=== PATIENT | female | born 1945 | race Caucasian/White ===

== ENCOUNTER → 2020-09-19 14:14 | Outpatient (BNVA) | payer MEDICARE, SELFPAY | PROVIDERS: PCP Family Medicine; Visit Provider Internal Medicine | DX: I25.10 Atherosclerotic heart disease of native coronary artery without angina pectoris (principal); I10 Essential (primary) hypertension; E78.5 Hyperlipidemia, unspecified; I25.2 Old myocardial infarction; Z79.899 Other long term (current) drug therapy; F17.210 Nicotine dependence, cigarettes, uncomplicated; Z71.6 Tobacco abuse counseling; Z95.5 Presence of coronary angioplasty implant and graft | CPT/HCPCS: 93005; 99212 ==

== ENCOUNTER 2021-03-06 10:21 | Day surgery (SDC) | payer MEDICARE, SELFPAY ==
--- NOTE | 2021-03-05 09:25 | HO.ANESPROP2 ---
Documented by User: Dana Pompa 03/05/21 09:26 HPI - Anesthesia Eval Consult details Narrative: 75yo F for Upper Endoscopy and Colonoscopy Stable at yearly cardiac visit 08/2020 [facility] Active Problems Active Problems: All Active Problems (Updated 01/09/21 @ 14:32 by Lorraine Early) Smoking (Acute) Other and unspecified hyperlipidemia (Acute) Essential hypertension (Acute) Atherosclerotic cardiovascular disease (Acute) Past Medical History Medical History Atherosclerotic cardiovascular disease Depression Elevated cholesterol Essential hypertension History of non-ST elevation myocardial infarction (NSTEMI) Hx of thyroid cancer On beta altagracia at home Other and unspecified hyperlipidemia Smoking Family History Family History Father No problems noted. Mother No problems noted. Surgical History Surgical History History of cardiac catheterization (~07/2016) History of carpal tunnel surgery of left wrist History of section History of esophagogastroduodenoscopy (EGD) History of thyroidectomy Hx of arthroscopy of right knee Hx of colonoscopy Social History Social History (Updated 03/06/21 @ 12:35 by Lara Acevedo) Patient Tobacco Use Status: Current someday Tobacco user Cigarettes Per Day: 2 Smoked in Last 30 Days: Yes Use of substances other than those prescribed or required for medical reasons: No Are you DNR?: No Advance Directives: No Advance Directives Information Provided: No Meds Allergies Allergy/AdvReac Type Severity Reaction Status Date / Time No Known Allergies Allergy Verified 01/09/21 14:23 [No Known Allergies*] Home Medications Medication Instructions Recorded Confirmed Last Taken Type amlodipine 5 mg tablet 5 mg PO BEDTIME 09/19/20 03/01/21 Unknown History aspirin 81 mg tablet,delayed 81 mg PO DAILY 09/19/20 03/01/21 Unknown History release citalopram 10 mg tablet 10 mg PO DAILY 09/19/20 03/01/21 Unknown History fluticasone propionate 50 INTRANASAL 09/19/20 09/19/20 Unknown History mcg/actuation nasal spray,suspension latanoprost 0.005 % eye drops 1 drp OPHTHALMIC (EYE) BEDTIME 09/19/20 03/01/21 Unknown History levothyroxine 100 mcg tablet 100 mcg PO DAILY 09/19/20 03/01/21 Unknown History lisinopril 40 mg tablet 40 mg PO BEDTIME 09/19/20 03/01/21 Unknown History magnesium 250 mg tablet 250 mg PO DAILY 09/19/20 03/01/21 Unknown History metoprolol tartrate 25 mg tablet 25 mg PO BID 09/19/20 03/01/21 Unknown History omeprazole 20 mg capsule,delayed 20 mg PO DAILY 09/19/20 03/01/21 Unknown History release Exam Exam Date and Time: March 05, [id number] Narrative Narrative: EKG 08/2020 sinus rhythm at 70/Min, no significant ST-T changes, no ischemia or infarction patterns, normal MT/QTc. Assessment and Plan Assessment Anesthesia Assessment: Chart Reviewed Documented by User: Lara Acevedo 03/06/21 12:36 [facility] Past Medical History Medical History Atherosclerotic cardiovascular disease Depression Elevated cholesterol Essential hypertension History of non-ST elevation myocardial infarction (NSTEMI) Hx of thyroid cancer On beta altagracia at home Other and unspecified hyperlipidemia Smoking Family History Family History Father No problems noted. Mother No problems noted. Family history of problems with anesthesia: No Surgical History Surgical History History of cardiac catheterization (~07/2016) History of carpal tunnel surgery of left wrist History of section History of esophagogastroduodenoscopy (EGD) History of thyroidectomy Hx of arthroscopy of right knee Hx of colonoscopy History of Problems with Anesthesia: No Social History Social History (Updated 03/06/21 @ 12:35 by Lara Acevedo) Patient Tobacco Use Status: Current someday Tobacco user Cigarettes Per Day: 2 Smoked in Last 30 Days: Yes Use of substances other than those prescribed or required for medical reasons: No Are you DNR?: No Advance Directives: No Advance Directives Information Provided: No Meds Allergies Allergy/AdvReac Type Severity Reaction Status Date / Time No Known Allergies Allergy Verified 01/09/21 14:23 [No Known Allergies*] Home Medications Medication Instructions Recorded Confirmed Last Taken Type amlodipine 5 mg tablet 5 mg PO BEDTIME 09/19/20 03/01/21 Unknown History aspirin 81 mg tablet,delayed 81 mg PO DAILY 09/19/20 03/01/21 Unknown History release citalopram 10 mg tablet 10 mg PO DAILY 09/19/20 03/01/21 Unknown History fluticasone propionate 50 INTRANASAL 09/19/20 09/19/20 Unknown History mcg/actuation nasal spray,suspension latanoprost 0.005 % eye drops 1 drp OPHTHALMIC (EYE) BEDTIME 09/19/20 03/01/21 Unknown History levothyroxine 100 mcg tablet 100 mcg PO DAILY 09/19/20 03/01/21 Unknown History lisinopril 40 mg tablet 40 mg PO BEDTIME 09/19/20 03/01/21 Unknown History magnesium 250 mg tablet 250 mg PO DAILY 09/19/20 03/01/21 Unknown History metoprolol tartrate 25 mg tablet 25 mg PO BID 09/19/20 03/01/21 Unknown History omeprazole 20 mg capsule,delayed 20 mg PO DAILY 09/19/20 03/01/21 Unknown History release Exam Height,Weight and Vital Signs: Vital Signs Temp Pulse Resp BP Pulse Ox 98.0 F 67 18 123/68 97 03/06/21 10:50 03/06/21 10:50 03/06/21 10:50 03/06/21 10:50 03/06/21 10:50 Airway Mallampati Class: III (Small mouth) TM Dist: >3cm Neck ROM: Full Loose/Missing/Broken Teeth: Yes (Some broken) Heart: RRR Lungs: CTAB Assessment and Plan Assessment Anesthesia Assessment: Anesthesia Plan Discussed and Chart Reviewed Final Anesthetic Review NPO: Yes ASA Class: III Final Preanesthetic Review: No Changes in Pt Med Stat, Meds/Allgs Chart Reviewed, Consent Obtained/Reviewed and Anes Risks/Benef Reviewed Patient Risk: Intermediate Procedure Risk: Low Assessment/Block/Sedation in SS: Assess/Block/Sedation-SS Anesthetic Plan Anesthetic Plan: MAC: Disposition: Standard PACU
[2021-03-06 10:50] VITALS: BP 123/68; PULSE 67; RESP 18; TEMP 36.7; O2SAT 97; BMI 26.8
[2021-03-06] MEDS: Lactated Ringers 1,000 ML 100 ML IVCONT (10:58)
--- NOTE | 2021-03-06 11:37 | MHC.SHP ---
Pre-Procedural Eval Section B Chief Complaint: reflux disease, screening Details of Present Illness: see H&P no changes Relevant Family History (Specify if Yes): No Relevant Social History: None Present Medications: see Short Stay Collaborative assessment Medical History: No relevant PMH (see h&p) History of Previous Operations: No relevant previous surgery Allergies: Allergies Allergy/AdvReac Type Severity Reaction Status Date / Time No Known Allergies Allergy Verified 01/09/21 14:23 [No Known Allergies*] Review of Systems Sugical H&P ROS: Negative: Constitution, Cardiovascular, Respiratory, Neurological, Psychiatric, Hem-Onc, Allergic/Immunologic, Gastrointestinal, Genitourinary, Musculoskeletal, Integumentary, Endocrine and Eyes/Ears/Nose/Throat Exam Surgical H&P Exam: Normal: HEENT, Normal: Heart, Normal: Lungs, Normal: Extremities, Normal: Abdomen, Normal: Skin and Normal: Neurological Plan Diagnosis/Plan: Unchanged I have reviewed the history and physical and performed a pertinent physical examination on my patient. No changes have occurred unless specified.
--- NOTE | 2021-03-06 12:19 | PM.OP ---
Brief Operative Note Date of Service: 03/06/21 Pre-op diagnosis: gerd screening Post-op diagnosis: same Procedure: egd/colon Surgeon: Rafael Prieto Anesthesia: MAC Was an [employer] Rug [employer] used for this Procedure?: No Estimated blood loss (mL): 2 Pathology: other (bxs egj, natrum, gastric polyps) Condition: stable
[2021-03-06 12:21] VITALS: BP 103/64; PULSE 68; RESP 17; TEMP 36.3; O2SAT 100
[2021-03-06 12:36] VITALS: BP 126/75; PULSE 70; RESP 17; TEMP 36.3; O2SAT 98
--- NOTE | 2021-03-09 10:56 | OP_ITS ---
SURGEON: Rafael Prieto MD INDICATIONS: Gastroesophageal reflux disease and colon cancer screening. PREOPERATIVE DIAGNOSIS: POSTOPERATIVE DIAGNOSIS: PROCEDURE PERFORMED: 1. Upper endoscopy with biopsy. 2. Colonoscopy to the terminal ileum. ESTIMATED BLOOD LOSS: COMPLICATIONS: ANESTHESIA: ASSISTANTS: SPECIMENS: MEDICATIONS: Monitored anesthesia care. DESCRIPTION OF PROCEDURE: History and physical performed. The risks and benefits of the procedure were explained to the patient. Informed consent was obtained. The patient was placed in the left lateral decubitus position. The Olympus video gastroscope was introduced into the esophagus, stomach, and duodenum. Examination was performed and the scope was removed. She was repositioned for colonoscopy. A digital rectal exam was performed and was found to be normal. The Olympus pediatric video colonoscope was introduced into the rectum and advanced to the cecum without difficulty. The cecum was identified by transillumination, palpation, and identification of ileocecal valve. Examination was performed and the scope was removed. She tolerated both procedures well and was taken to recovery area in stable condition. FINDINGS: UPPER ENDOSCOPY: Esophagus: The esophagus showed a slightly irregular EG junction. This was biopsied. There was no esophagitis. Stomach: The stomach showed multiple benign-appearing less than 10 mm gastric polyps, mainly involving the fundus and body. Biopsies were obtained from 2 polyps and the antrum. The antrum appeared normal. Duodenum: The bulb and second portion were normal. Biopsies were obtained from the antrum as well. COLONOSCOPY: The terminal ileum was normal. The visualized colonic mucosa was within normal limits without evidence of masses or ulcers. No polyps were identified. There was some formed stool in the descending colon limiting the sensitivity examination for detection of small polyps. Overall, the exam was considered adequate. Retroflexed examination showed some small internal hemorrhoids. IMPRESSION: 1. Gastroesophageal reflux disease. 2. Gastric polyps. 3. Normal colonoscopy. RECOMMENDATIONS: 1. Follow up the biopsy results. 2. Repeat colonoscopy is recommended in 10 years for average risk individuals. This is optional based on the patient's age. MD CODIE Avila/YUSUF / [id number] MTDD
== END 2021-03-06 12:58 | disposition home or self-care (01) ==
PROVIDERS: PCP Family Medicine; Visit Provider Internal Medicine Gastroenterology
PROC: (CPT 43239; principal; 2021-03-06 11:50)
DX: Z12.11 Encounter for screening for malignant neoplasm of colon (principal); K21.9 Gastro-esophageal reflux disease without esophagitis; I10 Essential (primary) hypertension; K31.7 Polyp of stomach and duodenum; Z85.850 Personal history of malignant neoplasm of thyroid; Z79.82 Long term (current) use of aspirin; Z79.899 Other long term (current) drug therapy
CPT/HCPCS: 43239; G0121; 88305; 88342

== ENCOUNTER → 2021-10-08 11:07 | Outpatient (BNVA) | payer MEDICARE, SELFPAY | PROVIDERS: PCP Family Medicine; Visit Provider Internal Medicine | DX: I25.10 Atherosclerotic heart disease of native coronary artery without angina pectoris (principal); I10 Essential (primary) hypertension; E78.5 Hyperlipidemia, unspecified; F17.200 Nicotine dependence, unspecified, uncomplicated; Z79.82 Long term (current) use of aspirin; Z79.899 Other long term (current) drug therapy | CPT/HCPCS: 93005; 99212 ==

== ENCOUNTER → 2022-07-25 08:17 | Outpatient (BNVA) | payer MEDICARE, SELFPAY | PROVIDERS: PCP Family Medicine; Visit Provider Psychiatry & Neurology Neurology | DX: R26.9 Unspecified abnormalities of gait and mobility (principal); R20.0 Anesthesia of skin; R20.2 Paresthesia of skin; R25.9 Unspecified abnormal involuntary movements | CPT/HCPCS: 99202 ==

== ENCOUNTER 2022-08-19 08:58 | Outpatient (REF) | payer MEDICARE, SELFPAY ==
--- NOTE | ~2022-08-19 | MR_ITS ---
EXAMINATION: MR CERVICAL SPINE WITHOUT CONTRAST CLINICAL INFORMATION: Gait and mobility abnormality. Bilateral upper extremity radicular symptoms reported. COMPARISON: X-ray cervical spine from 03/31/2014. TECHNIQUE: Multiplanar, multisequential imaging of the cervical spine was performed without contrast. FINDINGS: VERTEBRAL BODIES AND PARASPINAL SOFT TISSUES: Leftward curvature of the cervical spine again evident. The marrow signal is normal. There are no compression fractures. Mild anterolisthesis noted at the C4-C5 level. There are minimal anterior subluxations at the C5-C6, C6-C7, and C7-T1 levels. At the T1-T2 level, there is a mild anterolisthesis and broad-based central disc protrusion mildly impressing upon the ventral cord and thecal sac with thickening of the ligamentum flavum and oqmwhxsn-ct-wjocxw facet arthropathy, worse on the right side. Secondary mild central canal stenosis and ashj-ka-guhqfrsd foraminal narrowing. The paraspinal soft tissues appear normal. The vertebral artery flow voids are maintained. The imaged lung apices are grossly clear. There is a mild anterior subluxation with radfdfgr-tu-jncyca facet arthropathy also evident on sagittal imaging at the T2-T3 level with moderate foraminal encroachment. CERVICOMEDULLARY JUNCTION AND VISUALIZED POSTERIOR FOSSA: The craniovertebral junction and imaged portions of the brain demonstrate no acute abnormality. Mild small vessel ischemic changes noted in the brent. No cord signal abnormality or syrinx is seen. SPINAL LEVELS: C2-C3: Very small central disc protrusion. No central canal stenosis or foraminal narrowing. Mild left-sided facet arthropathy. C3-C4: Minimal disc bulge and moderate facet arthrosis, worse on the left side. No central canal stenosis. Znfn-ki-sjjykdut left foraminal narrowing. C4-C5: Mild anterolisthesis and disc bulge with thickening of the ligamentum flavum in conjunction with exuberant right-sided facet arthropathy. Findings result in moderate central canal stenosis and severe right foraminal narrowing. C5-C6: Minimal anterolisthesis and mild disc bulge with thickening of the ligamentum flavum. No central canal stenosis. Significant bilateral facet arthropathy with iyzd-yu-tkavdhnj foraminal narrowing. C6-C7: Mild anterolisthesis and significant right-sided facet arthropathy. No central canal stenosis. Moderate right foraminal narrowing. C7-T1: Moderate facet degeneration, worse on the right side, with mild right foraminal encroachment. No central canal stenosis or focal disc protrusion. MR/MR cervical spine wo con IMPRESSION: 1. Multilevel cervical spondylosis and leftward cervical spinal curvature. Moderate central canal stenosis at the C4-C5 level with significant right-sided facet arthropathy, a mild anterolisthesis, and severe right foraminal narrowing. 2. Mild anterior subluxation and broad-based central disc protrusion at the T1-T2 level with mild central canal stenosis and qjfeeafq-zo-zryuho facet arthropathy. 3. Significant facet arthropathy at the C5-C6 level with ikpg-db-efmbstij foraminal encroachment. Moderate right foraminal narrowing at the C6-C7 level with severe facet arthrosis.
== END 2022-08-19 08:59 | disposition home or self-care (01) ==
LOC: HO.MRI 08:58
PROVIDERS: PCP Family Medicine; Visit Provider Psychiatry & Neurology Neurology
DX: R26.9 Unspecified abnormalities of gait and mobility (principal)
CPT/HCPCS: 72141

== ENCOUNTER 2022-08-28 14:04 | Outpatient (REF) | payer MEDICARE, SELFPAY ==
--- NOTE | 2022-08-28 08:45 | EMG_ITS ---
Please see scanned EMG / Nerve Conduction Report. MTDD
== END 2022-08-28 14:05 | disposition home or self-care (01) ==
LOC: HO.NEURO 14:04
PROVIDERS: Visit Provider Psychiatry & Neurology Neurology
DX: R20.0 Anesthesia of skin (principal); R20.2 Paresthesia of skin
CPT/HCPCS: 95885; 95910

== ENCOUNTER → 2022-09-05 07:50 | Outpatient (BNVA) | payer MEDICARE, SELFPAY | PROVIDERS: PCP Family Medicine; Visit Provider Psychiatry & Neurology Neurology | DX: R26.9 Unspecified abnormalities of gait and mobility (principal); R25.9 Unspecified abnormal involuntary movements; G56.01 Carpal tunnel syndrome, right upper limb | CPT/HCPCS: 99212 ==

== ENCOUNTER → 2022-10-09 09:52 | Outpatient (BNVA) | payer MEDICARE, SELFPAY | PROVIDERS: PCP Family Medicine; Referring Provider Family Medicine; Visit Provider Internal Medicine | DX: I25.10 Atherosclerotic heart disease of native coronary artery without angina pectoris (principal); I10 Essential (primary) hypertension; E78.5 Hyperlipidemia, unspecified; I65.23 Occlusion and stenosis of bilateral carotid arteries; F17.210 Nicotine dependence, cigarettes, uncomplicated; Z79.82 Long term (current) use of aspirin; Z79.899 Other long term (current) drug therapy | CPT/HCPCS: 93005; 99212 ==

== ENCOUNTER 2022-10-31 12:56 | Outpatient (REF) | payer MEDICARE, SELFPAY ==
--- NOTE | ~2022-10-31 | US_ITS ---
EXAMINATION: US EXTRACRANIAL CAROTID DUPLEX, BILATERAL CLINICAL INFORMATION: Stenosis of bilateral carotid artery COMPARISON: Carotid Doppler 09/28/2018 TECHNIQUE: Real-time ultrasound and Doppler techniques (integrating B-mode 2-D vascular images, Doppler spectral analysis and color-flow Doppler imaging) were utilized to interrogate the extracranial carotid arteries, the vertebral arteries and proximal subclavian arteries bilaterally. The degree of stenosis is determined by criteria similar to NASCET. FINDINGS: Right Side: 1. There is mild atherosclerotic plaque seen in the bifurcation/proximal ICA region. 2. The common carotid artery PSV proximally is 84 cm/s and distally 91 cm/s. 3. The proximal internal carotid artery velocities are 80 cm/s systolic and 18 cm/s diastolic. 4. The proximal external carotid artery PSV is 147 cm/s. 5. The vertebral artery shows antegrade flow. 6. The subclavian artery waveforms are biphasic. Left Side: 1. There is mild atherosclerotic plaque seen in the bifurcation/proximal ICA region. 2. The common carotid artery PSV proximally is 104 cm/s and distally 71 cm/s. 3. The proximal internal carotid artery velocities are 141 cm/s systolic and 34 cm/s diastolic. 4. The proximal external carotid artery PSV is 83 cm/s. 5. The vertebral artery shows antegrade flow. 6. The subclavian artery waveforms are biphasic. US/US carotid duplex BI IMPRESSION: 1. RIGHT: Minimal, non-hemodynamically significant stenosis of the proximal right internal carotid artery corresponding to a 0-49% stenosis by velocity criteria. 2. LEFT: Moderate, hemodynamically significant stenosis of the proximal left internal carotid artery corresponding to a 50-79% stenosis by velocity criteria. 3. There is progression in the category severity of disease on the left when compared to the previous study dated 09/28/2018.
== END 2022-10-31 12:57 | disposition home or self-care (01) ==
LOC: HO.US 12:56
PROVIDERS: Visit Provider Internal Medicine
DX: I65.23 Occlusion and stenosis of bilateral carotid arteries (principal)
CPT/HCPCS: 93880

== ENCOUNTER → 2022-11-27 09:49 | Outpatient (BNVA) | payer MEDICARE, SELFPAY | PROVIDERS: PCP Family Medicine; Visit Provider Orthopaedic Surgery | DX: M65.332 Trigger finger, left middle finger (principal); G56.01 Carpal tunnel syndrome, right upper limb; I25.10 Atherosclerotic heart disease of native coronary artery without angina pectoris; I65.23 Occlusion and stenosis of bilateral carotid arteries | CPT/HCPCS: 20550; 99202; J1100 ==

== ENCOUNTER 2022-12-12 09:02 | Day surgery (SDC) | payer MEDICARE, SELFPAY ==
--- NOTE | 2022-12-12 10:24 | W.PM.OPN ---
Operative Note Operative Note Date of Service: 12/12/22 Narrative: Preop diagnosis: 1. right Carpal tunnel syndrome Postop diagnosis: same Procedure: 1. right Carpal tunnel release Surgeon: Sarina Pavon MD Anesthesia: local block using 1% lidocaine with epinephrine Findings: Thickened transverse carpal ligament. EBL: Less than 5 mL Specimens: None Complications: None Disposition: Brought to recovery room in stable condition Plan: Follow-up for 10-14 days for wound check and suture removal Indications: The patient is 77 years old, with right carpal tunnel syndrome that has been unresponsive to nonoperative management. The risks and benefits of operative treatment including but not limited to risk of damage to blood vessels, nerves, tendons, infection, persistent pain, persistent symptoms, or possible need for additional surgery were discussed with the patient and the patient wishes to proceed with surgery. Procedure: Once consent was obtained a local block was performed using a combination of 1% lidocaine with epinephrine. The patient was then brought back to the operating suite and placed on the operative table in supine position. The right upper extremity was prepped and draped in a standard surgical fashion. Once assured that we had a good block, a 2.0 cm longitudinal incision was made centered over the carpal tunnel. The incision was made through the skin to the subcutaneous tissues using a #15 blade. Dissection was made down to the level of the transverse carpal ligament with care being taken to protect the palmar cutaneous nerve. Once the transverse carpal ligament was clearly visualized, a longitudinal incision was made in the transverse carpal ligament 1st using a #15 blade, then using tenotomy scissors under direct visualization. Care was taken to look for and protect the motor branch of the median nerve when seen in this area. Once satisfied with our carpal tunnel release the wound was copiously irrigated with normal saline and hemostasis was obtained with a brief period of local pressure. The skin edges were reapproximated with some 5.0 nylon suture material and a sterile dressing was applied. The patient appears to have tolerated the procedure well and with no complications. All digits were well vascularized at the conclusion of the case.
[2022-12-12 10:26] VITALS: BMI 25.7
[2022-12-12 12:11] VITALS: BP 139/78; PULSE 76; O2SAT 99
== END 2022-12-12 12:33 | disposition home or self-care (01) ==
PROVIDERS: PCP Family Medicine; Visit Provider Orthopaedic Surgery
PROC: (CPT 64721; principal; 2022-12-12 10:30)
DX: G56.01 Carpal tunnel syndrome, right upper limb (principal); R20.0 Anesthesia of skin; R20.2 Paresthesia of skin; I25.10 Atherosclerotic heart disease of native coronary artery without angina pectoris; Z95.5 Presence of coronary angioplasty implant and graft; I25.2 Old myocardial infarction; F17.210 Nicotine dependence, cigarettes, uncomplicated; E78.00 Pure hypercholesterolemia, unspecified; I10 Essential (primary) hypertension; Z79.899 Other long term (current) drug therapy; Z85.850 Personal history of malignant neoplasm of thyroid
CPT/HCPCS: 64721; J0171

== ENCOUNTER → 2022-12-25 13:22 | Outpatient (BNVA) | payer MEDICARE, SELFPAY | PROVIDERS: PCP Family Medicine; Visit Provider Orthopaedic Surgery | DX: Z47.89 Encounter for other orthopedic aftercare (principal); M65.332 Trigger finger, left middle finger; I25.10 Atherosclerotic heart disease of native coronary artery without angina pectoris; I65.23 Occlusion and stenosis of bilateral carotid arteries; Z86.69 Personal history of other diseases of the nervous system and sense organs | CPT/HCPCS: 99212 ==

== ENCOUNTER 2023-08-08 09:27 | Outpatient (AMB) | payer MEDICARE, SELFPAY ==
--- NOTE | 2023-08-08 08:31 | MHC.OFFVIS ---
Intake Intake Visit Reasons: LDCT SD Allergies No Known Allergies [No Known Allergies*] Allergy (Verified 12/25/22 13:45) HPI LDCT SD HPI Details Initial telehealth/phone SDM visit for this 77yo smoker with a 25PYH. Patient has been smoking since age 27 for 50 years at 1/2ppd. Now 1/4ppd. . Denies marijuana use. Denies second hand smoke exposure. Denies exposure to chemicals or substances like asbestos. . Denies known family history of lung cancer. Twin Sister had lung cancer - did radiation Reports personal history of papillary thyroid cancer - s/p thyroidectomy and CH[facility] [address] in last year. . Denies recent travel outside the [place]. Denies recent respiratory illness or recent hospitalization for respiratory issues. Reports testing positive for COVID. Admits receiving COVID Vaccine. x3. . Denies fever, chills, new/worsening cough, hemoptysis, hoarseness or dysphagia. Denies significant chest pain, significant dyspnea or unintentional weight loss. Patient Lung Cancer Screening Questionnaire reviewed with patient by provider. . Shared Decision Making Completed. Patient meets criteria. Discussed in detail with patient, the risk vs benefit of LDCT screening. Patient consents to proceed with scan. Discussed smoking cessation. 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 50% Essential hypertension Other and unspecified hyperlipidemia On beta altagracia at home Arthritis GERD (gastroesophageal reflux disease) Depression Nicotine dependence, cigarettes, uncomplicated History of COVID-19 Surgical History (Updated 07/24/23 @ 15:08 by Tara West PA-C) History of total thyroidectomy (~2005) History of heart artery stent (~2015) History of cardiac catheterization (~2015) History of section History of carpal tunnel surgery of left wrist (~2002) History of carpal tunnel surgery of right wrist (~2022) History of right knee surgery (~2014) History of colonoscopy History of endoscopy Family History Father No problems noted. Mother Heart disease Breast cancer Social History (Updated 08/08/23 @ 09:26 by Tara West PA-C) Alcohol intake: never Patient Tobacco Use Status: Current everyday Tobacco user Tobacco use type: Cigarette Cigarettes Per Day: 5 Years Smoked: onset 27, 1/2ppd x 50yrs, now 1/4ppd - 25pyh) Current occupational status: retired Current occupation: right hand Assessment & Plan Assessment & Plan (1) Nicotine dependence, cigarettes, uncomplicated: Comment: (current smoker, onset 27, 1/2ppd x 50yrs, 25pyh) Code(s): F17.210 - Nicotine dependence, cigarettes, uncomplicated Plan: - SDM visit completed today in via phone. - Patient meets criteria for LDCT for lung cancer screening purposes and is asymptomatic. - Smoking cessation counseling offered. Patients can always call [phone]. - Will arrange for a LDCT scan of the chest for screening purposes at [facility]. - Risks, benefits, and alternatives were discussed in detail and the patient agrees to proceed. - Risks discussed include but are not limited to: radiation exposure, anxiety during testing and while awaiting results, false negatives, false positives and possibility of additional intervention such as further imaging or surgical procedures for benign disease. - Benefits are obviously detection of lung cancer at an early stage which can lead to improved outcomes. - Discussed the importance of screening program compliance with adherence to yearly LDCT scan as scheduled - or sooner interval scans for personalized screening regimen. - Discussed follow up plan. Our office will send a letter discussing results and if needed set up phone call and office visit based on CT findings. - Patient educated on results categorization and the management decisions for suspicious findings potentially found on the screening LDCT scan. Any patient with a Lung RADS score of 3 or 4 will be reviewed by a multidisciplinary team at [facility] to form a plan of action in regards to scan findings. - If further work up is warranted for a suspicious lung finding this will be followed by the Lung Cancer Screening program in conjunction with the Thoracic Surgery Department at [facility]. - A copy of the office note and LDCT will be sent to the patient's PCP - as well as documentation on any associated further plans of care. - Incidental findings on LDCT are the PCP's responsibility. These findings are indicated with an S finding on the LDCT Assessment. A note discussing the findings will be sent to the PCP who is then responsible for further management. - All questions answered.? Telehealth Telehealth Location of provider rendering services: practice address Location of patient: address on file Patient Identification confirmed using: Name, : Yes Telehealth method: voice only Patient verbally consented to treatment: Yes Patient verbally consented to billing insurance company: Yes Patient informed of any privacy concerns related to visit: Yes Minutes spent on Phone/Video with Pt.: 15 Coding Level of Care Code Lung Cancer Screening G0296 Diagnoses Nicotine dependence, cigarettes, uncomplicated F17.210
== END 2023-08-08 10:05 | disposition home or self-care (01) ==
LOC: HO.HMS 09:27
PROVIDERS: PCP Family Medicine; Visit Provider Physician Assistant Medical
DX: F17.210 Nicotine dependence, cigarettes, uncomplicated (principal)
CPT/HCPCS: G0296

== ENCOUNTER 2023-08-08 13:57 | Outpatient (REF) | payer MEDICARE, SELFPAY ==
--- NOTE | ~2023-08-08 | CT_ITS ---
EXAMINATION: CT CHEST SCREENING CLINICAL INFORMATION: Current smoker with 55 pack year history COMPARISON: None TECHNIQUE: Multidetector volumetric CT imaging of the chest is performed without contrast using low dose technique. Additional 2D coronal and sagittal reformatted images and axial 3D maximum intensity projection (MIP) images are generated on the CT workstation. This CT examination was performed using dose optimization techniques as appropriate, variously including the following: *Automated exposure control *Adjustment of mA and/or kV according to patient size (this includes techniques or standardized protocols for targeted exams where dose is matched to indication/reason for exam; i.e. 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 Clear lungs. Mild thoracolumbar scoliosis. LUNGS: Trachea and bronchi are patent. Mild centrilobular emphysema. Mild paraseptal emphysematous changes. Scattered atelectasis. No pulmonary nodules, consolidations or groundglass opacities. MEDIASTINUM: Right thyroid calcification. No pathologic lymphadenopathy. Nonenlarged heart. No pericardial effusion. Nonaneurysmal aorta with atherosclerotic calcifications. Nonenlarged pulmonary arteries. CORONARY ARTERY CALCIFICATION: Moderately severe PLEURA: There is no pleural effusion. No pleural mass or thickening. AXILLA: No lymphadenopathy. UPPER ABDOMEN: Fluid-filled left upper quadrant bowel loops with 9 mm focal hyperdensity, question ingested material. OSSEOUS STRUCTURES: Degenerative changes. Mild kyphoscoliosis. CT/CT lung screening IMPRESSION: No pulmonary nodules. ASSESSMENT: Lung-RADS category 1: Negative RECOMMENDATION: Routine annual low-dose CT screening in 12 months.
== END 2023-08-08 13:58 | disposition home or self-care (01) ==
LOC: HO.CT 13:57
PROVIDERS: PCP Family Medicine; Visit Provider Physician Assistant Medical
DX: Z12.2 Encounter for screening for malignant neoplasm of respiratory organs (principal); F17.210 Nicotine dependence, cigarettes, uncomplicated
CPT/HCPCS: 71271; G0296

== ENCOUNTER 2023-10-14 09:59 | Outpatient (AMB) | payer MEDICARE, SELFPAY ==
--- NOTE | 2023-10-14 10:03 | MHC.OFFVIS ---
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 Required: No Accompanied by: Self / Same As Patient Allergies No Known Allergies [No Known Allergies*] Allergy (Verified 10/14/23 10:07) Medication List - Last Reconciled 10/14/23 by Delfino Liao MD amlodipine 5 mg PO BEDTIME aspirin 81 mg PO DAILY cholecalciferol (vitamin D3) 25 mcg PO DAILY citalopram 10 mg PO DAILY citalopram 20 mg PO DAILY levothyroxine (Synthroid) 100 mcg PO DAILY lisinopril 40 mg PO BEDTIME metoprolol tartrate 25 mg PO BID omeprazole 20 mg PO DAILY oxybutynin chloride ER 10 mg PO DAILY oxycodone-acetaminophen 5-325 mg 1 tab PO Q6H PRN HPI HPI Comments History of Present Illness Details Pattie returns for follow-up regarding coronary disease. To recall, in 2016, she had NSTEMI and underwent cardiac catheterization/PCI to circumflex while visiting [place]. Since that time, she is generally doing good. No new cardiac events. No symptoms either. She could not take her statins because of lot of side effects and hence stopped them completely. With regard to smoking, not as much but she states she still smokes. [facility] Medical History (Updated 08/08/23 @ 09:26 by Tara West PA-C) History of thyroid cancer (~2005) Atherosclerotic cardiovascular disease History of non-ST elevation myocardial infarction (NSTEMI) (~2015) Stenosis of left carotid artery greater than 50% Essential hypertension Other and unspecified hyperlipidemia On beta altagracia at home Arthritis GERD (gastroesophageal reflux disease) Depression Nicotine dependence, cigarettes, uncomplicated History of COVID-19 Surgical History History of total thyroidectomy (~2005) History of heart artery stent (~2015) History of cardiac catheterization (~2015) History of section History of carpal tunnel surgery of left wrist (~2002) History of carpal tunnel surgery of right wrist (~2022) History of right knee surgery (~2014) History of colonoscopy History of endoscopy Family History Father No problems noted. Mother Heart disease Breast cancer Social History Alcohol intake: never Patient Tobacco Use Status: Current everyday Tobacco user Tobacco use type: Cigarette Cigarettes Per Day: 5 Years Smoked: onset 27, 1/2ppd x 50yrs, now 1/4ppd - 25pyh) Current occupational status: retired Current occupation: right hand Review of Systems Const All systems reviewed & are unremarkable except as noted in HPI and below Reports as per HPI and Reports no additional complaints Eyes Reports as per HPI and Denies no additional complaints ENT Denies no additional complaints and Reports as per HPI Card Reports as per HPI, Reports no additional complaints, Denies acrocyanosis, Denies chest pain, Denies leg edema, Denies lightheadedness, Denies palpitations and Denies dyspnea Resp Reports as per HPI, Denies no additional complaints and Denies dyspnea GI Reports as per HPI and Denies no additional complaints Reports as per HPI Musc Reports no additional complaints and Reports as per HPI Skin/Breast Reports system reviewed and no additional complaints, except as documented Neuro Reports no additional complaints and Reports as per HPI Psych Reports no additional complaints and Reports as per HPI Endo Reports no additional complaints, Reports as per HPI and Denies palpitations Guero/Lymph Reports no additional complaints and Reports as per HPI Aller/Immun Reports no additional complaints and Reports as per HPI Physical Exam Vital Signs: Last Vital Signs Pulse 64 10/14/23 10:06 BP 126/70 10/14/23 10:06 BMI result Body Mass Index 24.8 Const General: comfortable and no acute distress Orientation/consciousness: patient oriented x3 HEENT Other: Unremarkable Head: Yes normal to inspection Neck Neck: Yes normal visual inspection Chest Chest palpation & inspection: normal inspection of the chest Resp Auscultation: clear to auscultation bilaterally Cardio Palpation: normal PMI Heart sounds: S1 normal heart sound present, S2 normal heart sound present, no gallops, no murmurs and no rubs GI Palpation (GI): Soft to palpation Back/Spine/Pelvis Other: unremarkable Skin General skin exam: no rashes or lesions noted Neuro General: patient oriented x3 Extrem General: Yes normal to inspection Psych Mental Status: mental status grossly normal Office Procedures EKG Details: EKG with sinus rhythm at 64/Min; leftward axis; no significant ST-T changes and otherwise unremarkable. [place]. [address]-[id number], Complete Assessment & Plan Assessment & Plan (1) Atherosclerotic cardiovascular disease: Code(s): I25.10 - Atherosclerotic heart disease of [place] coronary artery without angina pectoris Plan: In the cardiac catheterization from 2016, she had culprit lesion in the mid circumflex, treated by drug-eluting stent. She had nonobstructive disease in LAD and diagonals. Last stress test from 2019 shows no significant perfusion abnormalities. Last echocardiogram showed preserved LVEF but mild diastolic dysfunction/normal filling pressures. Continue aspirin, beta-blockers. (2) Essential hypertension: Code(s): I10 - Essential (primary) hypertension Plan: On amlodipine and lisinopril. (3) Other and unspecified hyperlipidemia: Code(s): E78.5 - Hyperlipidemia, unspecified Plan: Most recent LDL 212 mg/dL. Triglycerides 194 mg/dL. Unable to take statins. Recommend PCSK9 inhibitors. (4) Smoking: Code(s): F17.200 - Nicotine dependence, unspecified, uncomplicated Plan: Advised to quit. (5) Bilateral carotid artery stenosis: Code(s): I65.23 - Occlusion and stenosis of bilateral carotid arteries Plan: Per last carotid ultrasound, 50-79% stenosis on the left side and 0-49% stenosis on the right side. Repeat is pending. Coding Level of Care Code Est Pt Level 4 (59156) Diagnoses Atherosclerotic cardiovascular disease I25.10 Essential hypertension I10 Other and unspecified hyperlipidemia E78.5 Smoking F17.200 Bilateral carotid artery stenosis I65.23 CPT Codes EKG - CPT: 14905-[id number], Complete ([id number])
[2023-10-14 10:06] VITALS: BP 126/70; PULSE 64; BMI 24.8
== END 2023-10-14 10:52 | disposition home or self-care (01) ==
PROVIDERS: Visit Provider Internal Medicine
DX: I25.10 Atherosclerotic heart disease of native coronary artery without angina pectoris (principal); I10 Essential (primary) hypertension; E78.5 Hyperlipidemia, unspecified; F17.200 Nicotine dependence, unspecified, uncomplicated; I65.23 Occlusion and stenosis of bilateral carotid arteries
CPT/HCPCS: 93010; 99214

== ENCOUNTER → 2023-10-14 09:59 | Outpatient (BNVA) | payer MEDICARE, SELFPAY | PROVIDERS: Visit Provider Internal Medicine | DX: I25.10 Atherosclerotic heart disease of native coronary artery without angina pectoris (principal); I10 Essential (primary) hypertension; E78.5 Hyperlipidemia, unspecified; I65.23 Occlusion and stenosis of bilateral carotid arteries; F17.210 Nicotine dependence, cigarettes, uncomplicated; Z79.82 Long term (current) use of aspirin; Z79.899 Other long term (current) drug therapy | CPT/HCPCS: 93005; 99212 ==

== ENCOUNTER 2023-10-29 09:52 | Outpatient (REF) | payer MEDICARE, SELFPAY ==
--- NOTE | ~2023-10-29 | US_ITS ---
EXAMINATION: US EXTRACRANIAL CAROTID DUPLEX, BILATERAL CLINICAL INFORMATION: Carotid stenosis COMPARISON: Carotid duplex on 10/31/2022 TECHNIQUE: Real-time ultrasound and Doppler techniques (integrating B-mode 2-D vascular images, Doppler spectral analysis and color-flow Doppler imaging) were utilized to interrogate the extracranial carotid arteries, the vertebral arteries and proximal subclavian arteries bilaterally. The degree of stenosis is determined by criteria similar to NASCET. FINDINGS: Right Side: 1. There is mild atherosclerotic plaque seen in the bifurcation/proximal ICA region. 2. The common carotid artery PSV proximally is 80 cm/s and distally 78 cm/s. 3. The proximal internal carotid artery velocities are 75 cm/s systolic and 17 cm/s diastolic. 4. The proximal external carotid artery PSV is 93 cm/s. 5. The vertebral artery shows antegrade flow. 6. The subclavian artery waveforms are normal. Left Side: 1. There is a atherosclerotic plaque seen in the bifurcation/proximal ICA region. 2. The common carotid artery PSV proximally is 134 cm/s and distally 76 cm/s. 3. The proximal internal carotid artery velocities are 138 cm/s systolic and 42 cm/s diastolic. 4. The proximal external carotid artery PSV is 60 cm/s. 5. The vertebral artery shows antegrade flow. 6. The subclavian artery waveforms are normal. US/US carotid duplex BI 1. IMPRESSION: RIGHT: Minimal, non-hemodynamically significant stenosis of the proximal right internal carotid artery corresponding to a very minimal stenosis by velocity criteria. 2. LEFT: Moderate hemodynamically significant stenosis of the proximal left internal carotid artery corresponding to a stenosis by velocity criteria. 3. No change compared to 10/31/2022.
== END 2023-10-29 09:53 | disposition home or self-care (01) ==
LOC: HO.US 09:52
PROVIDERS: PCP Family Medicine; Visit Provider Internal Medicine
DX: I65.23 Occlusion and stenosis of bilateral carotid arteries (principal)
CPT/HCPCS: 93880

== ENCOUNTER 2024-02-03 10:14 | Outpatient (AMB) | payer MEDICARE, SELFPAY ==
[2024-02-03 10:25] VITALS: BP 120/62; PULSE 68; BMI 26.6
--- NOTE | 2024-02-03 10:25 | MHC.OFFVIS ---
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: No Accompanied by: Self / Same As Patient Allergies evolocumab [From Braeden Sharma] Adverse Reaction (Severe, Verified 11/12/23 10:02) Hypertension, constipation, nausea, abd pain rosuvastatin Adverse Reaction (Verified 11/12/23 09:49) Muscle Pain Medication List - Last Reconciled 02/03/24 by Delfino Liao MD amlodipine 5 mg PO BEDTIME aspirin 81 mg PO DAILY cholecalciferol (vitamin D3) 25 mcg PO DAILY citalopram 20 mg PO DAILY cyanocobalamin (vitamin B-12) (Vitamin B-12) 100 mcg PO DAILY levothyroxine (Synthroid) 100 mcg PO DAILY lisinopril 40 mg PO BEDTIME metoprolol tartrate 25 mg PO BID omeprazole 20 mg PO DAILY oxybutynin chloride ER 10 mg PO DAILY rosuvastatin 40 mg PO DAILY 90 days vibegron (Gemtesa) 75 mg PO DAILY HPI Comments Details: Pattie returns for follow-up regarding coronary disease. To recall, in 2015, she had NSTEMI and underwent cardiac catheterization/PCI to circumflex while visiting [place]. Since that time, she is generally doing good. No new cardiac events. No symptoms either. She could not take her statins because of lot of side effects and hence stopped them completely. Then tried Repatha but had more side effects and not taking that either. Now she states she is back on statins. With regard to smoking, not as much but she states she still smokes. [facility] Medical History (Updated 08/08/23 @ 09:26 by Tara West PA-C) History of thyroid cancer (~2005) Atherosclerotic cardiovascular disease History of non-ST elevation myocardial infarction (NSTEMI) (~2015) Stenosis of left carotid artery greater than 50% Essential hypertension Other and unspecified hyperlipidemia On beta altagracia at home Arthritis GERD (gastroesophageal reflux disease) Depression Nicotine dependence, cigarettes, uncomplicated History of COVID-19 Surgical History History of total thyroidectomy (~2005) History of heart artery stent (~2015) History of cardiac catheterization (~2015) History of section History of carpal tunnel surgery of left wrist (~2002) History of carpal tunnel surgery of right wrist (~2022) History of right knee surgery (~2014) History of colonoscopy History of endoscopy Family History Father No problems noted. Mother Heart disease Breast cancer Social History Alcohol intake: never Patient Tobacco Use Status: Current everyday Tobacco user Tobacco use type: Cigarette Cigarettes Per Day: 5 Years Smoked: onset 27, 1/2ppd x 50yrs, now 1/4ppd - 25pyh) Current occupational status: retired Current occupation: right hand Review of Systems Const Denies chills, Denies fatigue, Denies fever(s), Denies frequent falls, Denies weakness, Denies weight gain and Denies weight loss ENT Denies dizziness Card Denies chest pain, Denies leg edema, Denies lightheadedness, Denies palpitations, Denies dyspnea and Denies dyspnea on exertion Resp Denies cough, Denies dyspnea and Denies dyspnea on exertion GI Denies hematochezia Musc Denies abnormal gait, Denies muscle weakness, Denies numbness, Denies radiating pain into limb and Denies tingling Neuro Denies abnormal gait, Denies dizziness, Denies frequent falls, Denies numbness, Denies tingling and Denies weakness Endo Denies fatigue and Denies palpitations Physical Exam Vital Signs: Last Vital Signs Pulse 68 02/03/24 10:25 BP 120/62 02/03/24 10:25 BMI result Body Mass Index 26.6 Const General: comfortable and no acute distress Orientation/consciousness: patient oriented x3 HEENT Other: Unremarkable Head: Yes normal to inspection Neck Neck: Yes normal visual inspection Chest Chest palpation & inspection: normal inspection of the chest Resp Auscultation: clear to auscultation bilaterally Cardio Palpation: normal PMI Heart sounds: S1 normal heart sound present, S2 normal heart sound present, no gallops, no murmurs and no rubs GI Palpation (GI): Soft to palpation Back/Spine/Pelvis Other: unremarkable Skin General skin exam: no rashes or lesions noted Neuro General: patient oriented x3 Extrem General: Yes normal to inspection Psych Mental Status: mental status grossly normal Assessment & Plan Assessment & Plan (1) Atherosclerotic cardiovascular disease: Code(s): I25.10 - Atherosclerotic heart disease of [place] coronary artery without angina pectoris Category: Medical Plan: Cardiac catheterization 2016- culprit lesion mid circumflex, treated by drug-eluting stent; nonobstructive disease in LAD and diagonal. Last stress test from 2019 - no significant perfusion abnormalities. Last echocardiogram - preserved LVEF but mild diastolic dysfunction/normal filling pressures. Continue aspirin, beta-blockers. (2) Essential hypertension: Code(s): I10 - Essential (primary) hypertension Category: Medical Plan: On amlodipine and lisinopril. (3) Other and unspecified hyperlipidemia: Code(s): E78.5 - Hyperlipidemia, unspecified Category: Medical Plan: Her cholesterol was quite high. Statin intolerance and hence recommended PCSK9 inhibitors. She tried Repatha and had more side effects and not taking that and would not like to try an injectable. According to her, she is back on the statins and able tolerate now. Will need to get the most recent lipids from PCP. She has not interested in anything else at this time (4) Smoking: Code(s): F17.200 - Nicotine dependence, unspecified, uncomplicated Category: Social Hx Plan: Advised to quit. (5) Bilateral carotid artery stenosis: Code(s): I65.23 - Occlusion and stenosis of bilateral carotid arteries Category: Medical Plan: Per carotid ultrasound, moderate stenosis in the left proximal internal carotid artery. Minimal on the right side. Mainly risk factor modification at this time. Coding Level of Care Code Est Pt Level 4 (28462) Diagnoses Atherosclerotic cardiovascular disease I25.10 Essential hypertension I10 Other and unspecified hyperlipidemia E78.5 Smoking F17.200 Bilateral carotid artery stenosis I65.23
== END 2024-02-03 10:47 | disposition home or self-care (01) ==
PROVIDERS: PCP Family Medicine; Visit Provider Internal Medicine
DX: I25.10 Atherosclerotic heart disease of native coronary artery without angina pectoris (principal); I10 Essential (primary) hypertension; E78.5 Hyperlipidemia, unspecified; F17.200 Nicotine dependence, unspecified, uncomplicated; I65.23 Occlusion and stenosis of bilateral carotid arteries
CPT/HCPCS: 99214

== ENCOUNTER → 2024-02-03 10:14 | Outpatient (BNVA) | payer MEDICARE, SELFPAY | PROVIDERS: PCP Family Medicine; Visit Provider Internal Medicine | DX: I25.10 Atherosclerotic heart disease of native coronary artery without angina pectoris (principal); I10 Essential (primary) hypertension; E78.5 Hyperlipidemia, unspecified; I65.23 Occlusion and stenosis of bilateral carotid arteries; I25.2 Old myocardial infarction; Z79.82 Long term (current) use of aspirin; Z79.899 Other long term (current) drug therapy | CPT/HCPCS: 99212 ==

== ENCOUNTER 2024-02-12 14:23 | Outpatient (REF) | payer MEDICARE, SELFPAY ==
--- NOTE | ~2024-02-12 | CT_ITS ---
EXAMINATION: CT ABDOMEN AND PELVIS WITHOUT CONTRAST CLINICAL INFORMATION: 78-year-old female with constipation and weight loss COMPARISON: CT chest from 08/08/2023 TECHNIQUE: Multidetector volumetric imaging was performed from the superior aspect of the liver through the pubic symphysis. Sagittal and coronal reformatted images were obtained on the technologist's workstation. Oral contrast administration. This CT examination was performed using dose optimization techniques as appropriate, variously including the following: *Automated exposure control *Adjustment of mA and/or kV according to patient size (this includes techniques or standardized protocols for targeted exams where dose is matched to indication/reason for exam; i.e. extremities or head) *Use of iterative reconstruction technique DLP: 360 mGy-cm FINDINGS: LUNG BASES: The visualized lung bases are unremarkable. LIVER, GALLBLADDER, AND BILIARY TREE: The liver is normal in size, shape, and attenuation. No focal hepatic lesion or biliary ductal dilatation is present. The gallbladder is unremarkable with no evidence of radiopaque gallstones, gallbladder wall thickening, or obvious pericholecystic inflammatory changes. PANCREAS: There is low-attenuation lesion in the pancreatic tail most likely cyst measured 6.3 x 4.7 x 4.3 cm with seen septations and calcifications in the septi. Due to noncontrast technique evaluation of the cystic lesion is limited. SPLEEN: Unremarkable. ADRENAL GLANDS: Unremarkable. KIDNEYS AND URETERS: Left left kidney demonstrate lower pole 3.2 x 3.2 cm simple cyst in no hydroureteronephrosis. Right kidney is unremarkable. BLADDER: Unremarkable. GASTROINTESTINAL TRACT: The small and large bowel are unremarkable. The appendix is unremarkable. ABDOMINAL WALL: No significant hernia is appreciated. LYMPH NODES: Normal. VASCULAR: Unremarkable. PELVIC VISCERA: Unremarkable. OSSEOUS STRUCTURES: Multilevel degenerative changes in lumbar spine with grade 1 anterior listhesis of L4 over L5 and significant degenerative changes with disc disease at the level of L1-L2 and L2-L3. CT/CT abdomen pelvis wo IV con IMPRESSION: 1. Cystic lesion in the tail of the pancreas most likely cystadenoma versus pseudocyst of chronic pancreatitis. 2. Degenerative changes in lumbar spine. 3. Simple cyst in left kidney Fleischner guidelines were followed.
[2024-02-12] MEDS: Barium Sulfate Oral (Berry) 450 ML ORAL.SUSP 900 ML PO (16:24)
== END 2024-02-12 14:24 | disposition home or self-care (01) ==
LOC: HO.CT 14:23
PROVIDERS: PCP Family Medicine; Visit Provider Family Medicine
DX: K59.00 Constipation, unspecified (principal); R63.4 Abnormal weight loss
CPT/HCPCS: 74176

== ENCOUNTER 2024-04-08 10:51 | Outpatient (REF) | payer MEDICARE, SELFPAY ==
--- NOTE | ~2024-04-08 | MR_ITS ---
EXAMINATION: MR BRAIN WITHOUT AND WITH CONTRAST CLINICAL INFORMATION: Off-balance, dizziness, vertigo COMPARISON: None. TECHNIQUE: Multiplanar, multisequence imaging was obtained without and with intravenous contrast. Intravenous contrast: 6 mL Gadavist. FINDINGS: The VII and VIII cranial nerve complexes are normal in course and caliber. No signal abnormality is visualized within the inner ear structures on the precontrast axial T1-weighted sequence. Fluid signal is preserved within the cochlea, semicircular canals, and vestibule on the high-resolution axial FIESTA sequence. There is no abnormal labyrinthine or intracanalicular enhancement on postcontrast imaging. No cerebellopontine angle lesion. No acute infarct. No acute intracranial hemorrhage or extra-axial fluid collection. The ventricles and sulci are normal in size and configuration without significant volume loss or hydrocephalus. Patchy T2 hyperintense foci in the subcortical and periventricular white matter and brainstem, nonspecific but presumably mild chronic microangiopathy. Apparent faint brush-like enhancement within the left frontal lobe deep white matter/centrum semiovale (image 18, series 11) without definite correlate on the coronal postcontrast sequence may be artifactual or reflective of a low flow vascular malformation/capillary telangiectasia. No mass effect or herniation pattern. Normal appearance of the midline structures. Normal intracranial arterial and dural venous sinus flow voids. The orbits are grossly unremarkable. The paranasal sinuses and mastoids are well aerated. Small retention cyst in the left nasopharynx. The craniocervical junction is intact. Normal marrow signal. MR/MR head/brain wo/w con IMPRESSION: 1. No retrocochlear pathology. 2. No acute intracranial abnormality. 3. Mild chronic microangiopathy. 4. Apparent faint brush-like enhancement within the left frontal lobe deep white matter/centrum semiovale (image 18, series 11) without definite correlate on the coronal postcontrast sequence may be artifactual or reflective of a low flow vascular malformation/capillary telangiectasia. Consider attention on follow-up 3 Shruthi MRI with 3-D postcontrast and GRE sequences.
[2024-04-08] MEDS: gadobutroL 7.5 ML VIAL IVPUSH (11:54)
== END 2024-04-08 10:52 | disposition home or self-care (01) ==
LOC: HO.MRI 10:51
PROVIDERS: PCP Family Medicine; Visit Provider Otolaryngology
DX: D33.3 Benign neoplasm of cranial nerves (principal); H81.4 Vertigo of central origin
CPT/HCPCS: 70553; A9585

== ENCOUNTER 2024-08-09 10:10 | Outpatient (REF) | payer MEDICARE, SELFPAY | END 2024-08-09 10:11 | disposition home or self-care (01) | LOC: HO.CT 10:10 | PROVIDERS: PCP Family Medicine; Visit Provider Physician Assistant Medical | DX: Z12.2 Encounter for screening for malignant neoplasm of respiratory organs (principal); F17.210 Nicotine dependence, cigarettes, uncomplicated | CPT/HCPCS: 71271 ==

== ENCOUNTER → 2024-08-09 10:12 | Outpatient (BNV) | payer MEDICARE, SELFPAY | PROVIDERS: PCP Family Medicine; Visit Provider Radiology Diagnostic Radiology | DX: J43.9 Emphysema, unspecified (principal) | CPT/HCPCS: 71271 ==

== ENCOUNTER → 2024-10-25 10:20 | Outpatient (BNV) | payer MEDICARE, SELFPAY | PROVIDERS: PCP Family Medicine; Visit Provider Radiology Diagnostic Radiology | DX: I65.23 Occlusion and stenosis of bilateral carotid arteries (principal) | CPT/HCPCS: 93880 ==

== ENCOUNTER 2025-02-07 14:08 | Outpatient (REF) | payer MEDICARE, SELFPAY ==
--- OUTSIDE RECORDS SUMMARY | 2025-02-07 14:16 | XMS_ITS | Patient Health Record ---
Author Organization [facility] Address [address] [place] [address] Care Team Providers Care Batt Machine Operator Name Role Phone Jef HOOD, Pedro Primary Care Provider Unavailab Rafael Tovar Jr Unavailable Reason For Referral No Information Medications Medication SIG (Take, Route, Frequency, Duration) Notes Start Date End Date Status Rosuvastatin Calcium Active Aspir-81 Active Lisinopril Active Synthroid Active MoviPrep 100 GM as directed before colonoscopy Orally for 1 dose 02/15/2021 Active Omeprazole Active Metoprolol Tartrate Active Citalopram Hydrobromide Active MiraLax (colon prep) 8.3 ounce ((238) grams mixed with Gatorade or Crystal Light orally begin at 5:00 p.m. the day before the procedure for 1 day 07/19/2020 Active [place] 3 Active GaviLyte-G 236 GM as directed Orally 02/15/2021 Active Vitamin D-3 Active Immunizations Vaccine Route Administration Date Status Comme nts Influenza Unknown 05/31/2020 Administered Social History Tobacco Use: Social History Observation Description Date Details (start date - stop date) Current Smoker NA - NA Tobacco Use/Smoking Question Answer Notes Patient is a current smoker How often do you smoke cigarettes? some days, bu t not every day How many cigarettes a day do you smoke? 5 or les s How soon after you wake up d o you smoke your first cigarette? after 60 minutes Are you interested in quitting? Thinking about q uitting Alcohol Screen Question Answer Notes Did you have a drink containing alcohol in the p ast year? No Points 0 Interpretation Negative Problems Problem Type SNOMED Code ICD Code Onset Dates Problem Status W/U Status Risk Notes Problem Esophageal reflux (K21.9) Active confirmed Problem 207265678 Screening for colon cancer (Z12.11) Active confirmed Problem Gastric polyp (64442185) Gastric polyp (K31.7) Active confirmed Problem [id number] GERD without esophagitis (K21.9) Active confirmed Plan Of Treatment Future Test Test Name Order Date UPPER GI ENDOSCOPY 07/19/2020 COLONOSCOPY 07/19/2020 Insurance Providers Payer Name Payer Address Payer Phone Subscriber Number Group Number Insured Name Patient Relationship to Insured Coverage Start Date Coverage End Date MEDICARE OF [place] [address] [place] [id number] EDDIE HILLIARD Self - patient is the insured [facility] [employer] PL[facility] [address] [place] [address] [id number] EDDIE HILLIARD Self - patient is the insured Medical (General) History Medical History History ICD Code hypertension anxiety depression hyperlipidemia acid reflux, EGD 10/01, no Soriano's esop hagus or H. pylori. colonoscopy 01/2008. No polyps, ten-year followup was due 2018 coronary artery disease with SD and hist ory of stent placement Surgical History Surgery Date(Month/Year) thyroidectomy, complete stent placement
--- OUTSIDE RECORDS SUMMARY | 2025-02-07 14:16 | XMS_ITS | Clinical Summary ---
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 Name Role Phone Unavailable Primary Care Provider Unavailabl e Social History Tobacco Use Types Packs/Day Years Used Date Smoking Tobacco: Never Assessed Comments Unknown Sex and Gender Information Value Date Recorded Sex Assigned at Not on file Legal Sex Female 4:15 PM EDT Gender Identity Not on file Sexual Orientation Not on file Plan of Treatment Health Maintenance Due Date Last Done Comments HIV screening 1960 Hepatitis C screening 1965 Tetanus adult (Td q 10,TDAP once) 1967 Pneumococcal Vaccine (50+ years) (1 of 1 - PCV) 1997 Shingles vaccine (Shingrix) (1 of 2 - Shingrix (RZV) 2 Dose Standard Series) 1997 Osteoporosis screening (bone density) 2012 Diabetes screening 07/28/2019 07/28/2016, 07/26/2016 Lipid disorder screening 07/27/2021 016, 07/26/2016 RSV Immunization (1 - 1-dose 75+ series) 2022 Covid-19 vaccine series ( season) 2024 Influenza vaccine 05/23/2025 Breast cancer screening Discontinued Cervical cancer screening Discontinued Colon cancer screening, Colonoscopy Discontinued Meningococcal Vaccine Aged Out No hanh kathleen eligible based on patient's age to complete this topic Procedures Procedure Name Priority Date/Time Associated Diagnosis Comments BASIC METABOLIC PANEL Routine 07/28/2016 5:37 AM EST LIPID PANEL Routine 07/27/2016 7:07 AM EDT from Last 3 Months or Most Recently Relevant to Health Maintenance Results * (ABNORMAL) Basic metabolic panel (07/28/2016 5:37 AM EST) Glucose 93 65 - 110 mg/dL [facility] Comment: (NOTE) Non-fasting: ??65-110 mg/dL Fasting (minimum 6 hrs): ??65-99 mg/dL Time of Last Meal UNKNOWN [facility] BUN 15 7 - 18 mg/dL [facility] Creatinine 0.68 0.55 - 1.02 mg/dL [facility] eGFR >60 >60 mL/min [facility] Comment: (NOTE) This is an estimated value resulting from utilization of a calculation incorporating the best data available for input, but all assumptions may not be correct in every case. ??In addition, there are several situations (elderly over 70 years, , serious co morbidities, extremes of body size or nutritional status) which could contribute to a misleading result. Therefore, clinical correlation is advised to prevent arriving at an erroneous conclusion based solely on the calculation utilized. Sodium 147(H) 136 - 145 mmol/L [facility] Potassium 3.7 3.5 - 5.1 mmol/L [facility] Chloride 111(H) 98 - 107 mmol/L [facility] CO2 27 21 - 32 mmol/L [facility] Anion Gap 9 5 - 15 mmol/L [facility] Calcium 7.9(L) 8.5 - 10.1 mg/dL [facility] 07/28/2016 5:37 AM EST 07/28/2016 5:38 AM EST Narrative [facility] - 07/28/2016 6:22 AM EST Pyrites + [facility], [address] [facility] [address] - Lab number [id number] us Provider Not In System LAB BLOOD ORDERABLES Katlin bach Result [facility] [address] [place] [address] * (ABNORMAL) Lipid panel (07/27/2016 7:07 AM EDT) Cholesterol 224(H) <200 mg/dL [facility] Comment: (NOTE) Cholesterol Reference Range: Desirable: ?? <200 mg/dL Borderline: ??200-240 mg/dL High Risk: ?? >240 mg/dL Triglycerides 185(H) <150 mg/dL [facility] Comment: (NOTE) Triglyceride Reference Range: Normal: ? <150 mg/dL Borderline High: ??150-199 mg/dL High: ? 200-499 mg/dL Very High: ?>or= 500 mg/dL HDL 37 mg/dL [facility] Comment: (NOTE) HDL Reference Range: Low: ? <40 High: ?>or= 60 LDL Calculated 150(H) <100 mg/dL [facility] Comment: (NOTE) LDL Reference Range: Optimal: ? <100 mg/dL Near/Above Optimal: ??100-129 mg/dL Borderline High: ? 130-159 mg/dL High: ?160-189 mg/dL Very High: ? >or= 190 mg/dL This calculation may not accurately calculate the LDL in alcoholic patients. These patients may require a direct measurement of serum LDL. 07/27/2016 7:07 AM EDT 07/27/2016 7:09 AM EDT Narrative [facility] - 07/27/2016 8:31 AM EDT [facility], [address] [place] [id number] - Lab number [id number] us Provider Not In System LAB BLOOD ORDERABLES Katlin bach Result [facility] [address] [place] [address] from Last 3 Months or Most Recently Relevant to Health Maintenance Insurance [facility]IC[facility]
[2025-02-07 14:21] LABS: MANUAL DIFF FLAG NO
[2025-02-07 14:44] LABS: Basophils Absolute Auto 0.1 X10*3/uL (0.0-0.2); Basophils Percent Auto 1.3 % (0-2); Eosinophils Absolute Auto 0.4 X10*3/uL (0.0-0.4); Eosinophils Percent Auto 4.7 % (0-4); Hematocrit 41.6 % (37.0-47.0); Hemoglobin 13.3 g/dl (12.0-16.0); Imm Gran Abs Auto 0.02 X10*3/uL (0.00-0.03); Imm Gran Pct Auto 0.2 % (0.0-0.4); Lymphocytes Absolute Auto 2.4 X10*3/uL (1.2-4.9); Lymphocytes Percent Auto 27.9 % (20-40); Mean Corpuscular Hemoglobin 30.5 pg (27.0-33.0); Mean Corpuscular Volume 95.4 fL (80.0-98.0); Mean Platelet Volume 10.8 fL (9.4-12.3); Monocytes Absolute Auto 0.7 X10*3/uL (0.1-1.2); Monocytes Percent Auto 7.7 % (2-11); Neutrophils Absolute Auto 5.1 x10*3/uL (2.0-8.3); Neutrophils Percent Auto 58.2 % (45-73); Platelet Count 391 X10*3/uL (160-400); Red Blood Count 4.36 X10*6/uL (4.20-5.50); Red Cell Distribution Width 12.8 % (11.0-16.0); White Blood Count 8.7 X10*3/uL (4.8-10.8)
[2025-02-07 15:15] LABS: Alanine Aminotransferase 17 U/L (0-31); Anion Gap 14 (12-20); Aspartate Amino Transferase 26 U/L (5-31); Blood Urea Nitrogen 13 mg/dL (9-16); Carbon Dioxide 30 mmol/L (22-29); Chloride 106 mmol/L (96-108); Estimated Glomerular Filt Rate > 60; Potassium 3.8 mmol/L (3.3-5.1); Sodium 146 mmol/L (135-145)
== END 2025-02-07 14:09 | disposition home or self-care (01) ==
LOC: HO.LAB 14:08
PROVIDERS: PCP Family Medicine; Visit Provider Family Medicine
DX: E03.9 Hypothyroidism, unspecified (principal); R53.83 Other fatigue; E78.00 Pure hypercholesterolemia, unspecified; Z79.899 Other long term (current) drug therapy
CPT/HCPCS: 36415; 80051; 82550; 82565; 84439; 84450; 84460; 84520; 85025

== ENCOUNTER 2025-02-22 13:02 | Outpatient (AMB) | payer MEDICARE, SELFPAY ==
--- NOTE | 2025-02-22 13:14 | A.OFFVIS_ITS ---
Vital Signs 02/22/25 13:15 Height 5 ft 1 in Weight 132 lb 4.438 oz BMI 25.0 BP 128/68 Blood Pressure Location Lt brachial Position Sitting Pulse 74 Pulse Source Monitor Intake Visit Reasons: 1 yr follow up Allergies evolocumab [From Braeden Sharma] Adverse Reaction (Severe, Verified 11/12/23 10:02) Hypertension, constipation, nausea, abd pain rosuvastatin Adverse Reaction (Verified 11/12/23 09:49) Muscle Pain Medication List - Last Reconciled 02/22/25 by Delfino Liao MD amlodipine 5 mg PO BEDTIME aspirin 81 mg PO DAILY cholecalciferol (vitamin D3) 25 mcg PO DAILY citalopram 20 mg PO DAILY cyanocobalamin (vitamin B-12) (Vitamin B-12) 100 mcg PO DAILY levothyroxine (Synthroid) 100 mcg PO DAILY lisinopril 40 mg PO BEDTIME metoprolol tartrate 25 mg PO BID omeprazole 20 mg PO DAILY oxybutynin chloride ER 10 mg PO DAILY rosuvastatin 40 mg PO DAILY 90 days vibegron (Gemtesa) 75 mg PO DAILY HPI Comments Details: Pattie returns for follow-up regarding coronary disease. To recall, in 2016, she had NSTEMI and underwent cardiac catheterization/PCI to circumflex while visiting [place]. Since that time, she is generally doing good. No new cardiac events. No symptoms either. She could not take her statins because of lot of side effects and hence stopped them completely. Then tried Repatha but had more side effects and not taking that either. Now she states she is back on statins. Overall, main complaints are just aches and pains and nonspecific symptoms but nothing clear-cut cardiac like exertional angina. She helps with her twin sister who has lot of health issues apparently. That is giving her a lot of stress. [facility] Medical History (Updated 08/08/23 @ 09:26 by Tara West PA-C) History of thyroid cancer (~2005) Atherosclerotic cardiovascular disease History of non-ST elevation myocardial infarction (NSTEMI) (~2015) Stenosis of left carotid artery greater than 50% Essential hypertension Other and unspecified hyperlipidemia On beta altagracia at home Arthritis GERD (gastroesophageal reflux disease) Depression Nicotine dependence, cigarettes, uncomplicated History of COVID-19 Surgical History History of total thyroidectomy (~2005) History of heart artery stent (~2015) History of cardiac catheterization (~2015) History of section History of carpal tunnel surgery of left wrist (~2002) History of carpal tunnel surgery of right wrist (~2022) History of right knee surgery (~2014) History of colonoscopy History of endoscopy Family History Father No problems noted. Mother Heart disease Breast cancer Social History Alcohol intake: never Patient Tobacco Use Status: Current everyday Tobacco user Tobacco use type: Cigarette Cigarettes Per Day: 5 Years Smoked: onset 27, 1/2ppd x 50yrs, now 1/4ppd - 25pyh) Current occupational status: retired Current occupation: right hand Review of Systems Const Denies weakness ENT Denies dizziness Card Denies chest pain, Denies chest pain with activity, Denies syncope, Denies rapid heart rate, Denies pedal edema, Denies edema, Denies leg edema, Denies lightheadedness, Reports palpitations, Denies dyspnea, Denies dyspnea on exertion and Denies orthopnea Resp Denies cough, Denies dyspnea and Denies dyspnea on exertion GI Denies hematochezia and Denies change in stool character Musc Denies abnormal gait, Denies muscle cramps, Denies muscle weakness, Denies numbness, Denies radiating pain into limb and Denies tingling Neuro Denies abnormal gait, Denies dizziness, Denies syncope, Denies numbness, Denies tingling and Denies weakness Endo Reports palpitations Physical Exam Vital Signs: Last Vital Signs Pulse 74 02/22/25 13:15 BP 128/68 02/22/25 13:15 BMI result Body Mass Index 25.0 Const General: comfortable and no acute distress Orientation/consciousness: patient oriented x3 HEENT Other: Unremarkable Head: Yes normal to inspection Neck Neck: Yes normal visual inspection Chest Chest palpation & inspection: normal inspection of the chest Resp Auscultation: clear to auscultation bilaterally Cardio Palpation: normal PMI Heart sounds: S1 normal heart sound present, S2 normal heart sound present, no gallops, no murmurs and no rubs GI Palpation (GI): Soft to palpation Back/Spine/Pelvis Other: unremarkable Skin General skin exam: no rashes or lesions noted Neuro General: patient oriented x3 Extrem General: Yes normal to inspection Psych Mental Status: mental status grossly normal Office Procedures EKG Details: EKG with underlying sinus rhythm at 72/Min; leftward axis; no ischemic findings; [place]. [id number], Complete Assessment & Plan Assessment & Plan (1) Atherosclerotic cardiovascular disease: Code(s): I25.10 - Atherosclerotic heart disease of [place] coronary artery without angina pectoris Category: Medical Plan: Cardiac catheterization 2016- culprit lesion mid circumflex, treated by drug-eluting stent; nonobstructive disease in LAD and diagonal. Last stress test from 2019 - no significant perfusion abnormalities. Last echocardiogram - preserved LVEF but mild diastolic dysfunction/normal filling pressures. Continue aspirin, beta-blockers. (2) Essential hypertension: Code(s): I10 - Essential (primary) hypertension Category: Medical Plan: On amlodipine and lisinopril. (3) Other and unspecified hyperlipidemia: Code(s): E78.5 - Hyperlipidemia, unspecified Category: Medical Plan: History of statin intolerance and hence recommended PCSK9 inhibitors. She tried Repatha and had more side effects and not taking that and would not like to try an injectable. It seems that she is back on statins as per med list. Last LDL 87 mg/dL. Triglycerides 168 mg/dL. (4) Smoking: Code(s): F17.200 - Nicotine dependence, unspecified, uncomplicated Category: Social Hx Plan: Needs to quit completely. (5) Bilateral carotid artery stenosis: Code(s): I65.23 - Occlusion and stenosis of bilateral carotid arteries Category: Medical Plan: In the most recent carotid ultrasound, no significant stenosis. Plan Discussion Notes I addressed the patient's concerns about her cardiovascular health, specifically her coronary artery disease and palpitations. We confirmed her coronary artery disease has been stable since the stent placement in 2016, and she reports no present chest pain. I advised periodic evaluation every six months and encouraged her to maintain some level of physical activity within her comfort zone to support her cardiac health. The plan to monitor her symptoms and ensure regular follow-ups was consented to by the patient. I discussed her arthritis and how it affects her mobility, noting no specific change in management was needed during this visit. Anxiety and dizziness, likely exacerbated by caregiving stress, will be monitored, with further counseling as needed. Patient was informed and verbally consented to the use of an ambient scribe for clinic note documentation during this visit. Patient Instructions: - Monitor any new chest pain or changes in heart symptoms, and seek care if symptoms worsen. - Engage in light physical activities like walking, as much as your body allows. - Continue current treatment for arthritis pain as prescribed. - Practice stress relief techniques to help manage anxiety and dizziness. - Follow up in six months for a routine evaluation. - Contact us if you experience any significant new symptoms such as severe palpitations, increased dizziness, or any distressing heart symptoms. Coding Level of Care Code Est Pt Level 4 (15135) Complex EM visit Add On G2211 Diagnoses Atherosclerotic cardiovascular disease I25.10 Essential hypertension I10 Other and unspecified hyperlipidemia E78.5 Smoking F17.200 Bilateral carotid artery stenosis I65.23 CPT Codes EKG - CPT: 48147-[id number], Complete ([id number])
[2025-02-22 13:15] VITALS: BP 128/68; PULSE 74; BMI 25.0
== END 2025-02-22 13:46 | disposition home or self-care (01) ==
LOC: HO.HCS 13:03
PROVIDERS: PCP Family Medicine; Visit Provider Internal Medicine
DX: I25.10 Atherosclerotic heart disease of native coronary artery without angina pectoris (principal); I10 Essential (primary) hypertension; E78.5 Hyperlipidemia, unspecified; F17.200 Nicotine dependence, unspecified, uncomplicated; I65.23 Occlusion and stenosis of bilateral carotid arteries
CPT/HCPCS: 93010; 99214; G2211

== ENCOUNTER → 2025-02-22 13:02 | Outpatient (BNVA) | payer MEDICARE, SELFPAY | PROVIDERS: PCP Family Medicine; Visit Provider Internal Medicine | DX: I25.10 Atherosclerotic heart disease of native coronary artery without angina pectoris (principal); I65.23 Occlusion and stenosis of bilateral carotid arteries; I10 Essential (primary) hypertension; E78.5 Hyperlipidemia, unspecified; F17.210 Nicotine dependence, cigarettes, uncomplicated | CPT/HCPCS: 93005; 99212 ==

== ENCOUNTER 2025-06-17 14:21 | Outpatient (AMB) | payer MEDICARE, SELFPAY ==
[2025-06-17 11:52] VITALS: BP 122/80; PULSE 80; TEMP 36.2; O2SAT 96; BMI 25.1
--- NOTE | 2025-06-17 11:52 | A.OFFPC_ITS ---
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 Required: No Accompanied by: Self / Same As Patient Allergies evolocumab (From [employer]) Adverse Reaction (Severe, Verified 06/17/25 11:52) Hypertension, constipation, nausea, abd pain rosuvastatin Adverse Reaction (Verified 06/17/25 11:52) Muscle Pain Tobacco use date assessed: 06/17/25 Fall risk assessment: 1 Fall in past year Last assessed Fall Risk: 06/17/25 Dental Screening Dental Screen Date: 06/17/25 Did you have a dental visit in the last 12 months?: Yes Did you have a dental problem in the last 6 months where you did not have access to dental care?: No HPI HPI Comments History of Present Illness Details 79-year-old female with history of CAD, GERD, hypertension, hyperlipidemia, carotid artery stenosis, history of papillary thyroid cancer, depression, osteoarthritis of multiple joints, nicotine dependence presents to the office today for management of chronic conditions and to establish care. She is a prior patient of Dr. Fuchs CAD/carotid artery stenosis- h/o NSTEMI, s/p [place] to the X 2015. [place] [facility]. On baby aspirin, metoprolol, rosuvastatin. No chest pain Hyperlipidemia-rosuvastatin 40 mg daily. 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 On levothyroxine 100 mcg daily. Due for TSH GERD-omeprazole skip line skip line hypertension-lisinopril 40 mg daily, metoprolol 25 mg twice daily, amlodipine 2.5 mg at bedtime. Blood pressure in the office 122/80 OA multiple joints-p.r.n. analgesics Concerns: Concerned about Parkinsons- new vocal tremor, intention tremor, gait ataxia/balance issues (uses cane occasionally). Has had several falls over the last year, most recently 4 months ago Urinary and fecal incontinence-has daily bowel movements but reports she has no sensation and is then incontinent. She wears depends leg bending outward which is new in effects balance/gait ROS: General: No fevers, malaise, unintentional weight loss HEENT: No blurred vision, diplopia. No sore throat, nasal congestion, rhi norrhea, sinus pain, ear pain Cardiovascular: No chest pain, palpitations, or leg edema Respiratory: No shortness of breath, wheezing, cough GI: No abdominal pain, nausea, vomiting, diarrhea, constipation, melena, hematochezia : No dysuria, hematuria, increased urinary frequency, decreased urinary output MSK: No myalgia, back pain Neuro: No headaches, weakness, paresthesias Skin: No rashes or lesions EXAM: Constitutional - Awake and Alert, No apparent distress Eyes - PERRL Cardiovascular - S1S2, RRR, 1+ edema right foot Respiratory - Normal lung expansion, Normal respiratory effort, No respiratory distress, CTA bilaterally Extremities - no calf tenderness bilaterally, no swelling MSK-varus abnormality of the right lower leg with swelling of the right knee Skin - Warm/Dry Neurological - Alert & oriented x3. Intention tremor, ataxic gait, vocal tremor Psychological - Appropriate affect [facility] Medical History (Updated 06/17/25 @ 15:11 by SILVESTRE Ibarra) Intention tremor Osteoporosis History of thyroid cancer (~2005) Atherosclerotic cardiovascular disease History of non-ST elevation myocardial infarction (NSTEMI) (~2015) Stenosis of left carotid artery greater than 50% Essential hypertension Other and unspecified hyperlipidemia On beta altagracia at home Arthritis GERD (gastroesophageal reflux disease) Depression Nicotine dependence, cigarettes, uncomplicated History of COVID-19 Surgical History History of total thyroidectomy (~2005) History of heart artery stent (~2015) History of cardiac catheterization (~2015) History of section History of carpal tunnel surgery of left wrist (~2002) History of carpal tunnel surgery of right wrist (~2022) History of right knee surgery (~2014) History of colonoscopy History of endoscopy Family History (Updated 06/17/25 @ 14:35 by Abby Rollins MA) Father No problems noted. Mother Heart disease Breast cancer Social History Housing: House Alcohol intake: never Patient Tobacco Use Status: Current everyday Tobacco user Tobacco use type: Cigarette Cigarettes Per Day: 5 Years Smoked: onset 27, 1/2ppd x 50yrs, now 1/4ppd - 25pyh) e-Cigarette/Vaping Use: Currently Using service: No Current occupational status: retired Current occupation: right hand Cognitive needs: No Hearing needs: No Vision needs: Yes (rx glasses) Questionnaire PHQ-9 Over the last 2 weeks, how often have you been bothered by any of the following problems? 1. Little interest or pleasure in doing things: not at all 2. Feeling down, depressed, or hopeless: several days 3. Trouble falling or staying asleep, or sleeping too much: nearly every day 4. Feeling tired or having little energy: several days 5. Poor appetite or overeating: not at all 6. Feeling bad about yourself - or that you are a failure or have let yourself or your family down: not at all 7. Trouble concentrating on things, such as reading the newspaper or watching television: not at all 8. Moving or speaking so slowly that other people could have noticed. Or the opposite - being so fidgety or restless that you have been moving around a lot more than usual: not at all 9. Thoughts that you would be better off or of hurting yourself in some way: not at all Total score: 5 Source: Developed by Drs. Austyn Abebe, Kelsey Landon, Gavin Sanabria and colleagues, with an educational contreras from [employer]. Thrive Questionnaire Date Thrive assessed: 06/17/25 I am a: Patient Within the past 12 months, did the food you bought not last and you didn't have the money to get more?: Never true Within the past 12 months, did you worry whether your food would run out before you got money to buy more?: Never true Do you have trouble paying for medicines?: No Do you have trouble getting transportation to medical appointments?: No Do you have trouble paying your heating and electricity bill?: No Do you have trouble taking care of your child, family member or friend?: No Do you have trouble with day-to-day activities such as bathing, preparing meals, shopping, managing finances, etc.?: No Are you currently unemployed and looking for a job?: No Are you interested in more education?: No THRIVE Score: 0 AUDIT C Alcohol Use Questionnaire (AUDIT-C) 1. How often do you have a drink containing alcohol?: Never 3. How often do you have six or more drinks on one occasion?: Never Total Score: 0 AMEYA-7 AMB Questionnaire AMEYA-7 Date AMEYA - 7 assessed: 06/17/25 Feeling nervous, anxious, or on edge: 1 = Several days Not being able to stop or control worryin = Not at all Worrying too much about different things: 0 = Not at all Trouble relaxin = Not at all Being so restless that it is hard to sit still: 0 = Not at all Becoming easily annoyed or irritable: 0 = Not at all Feeling afraid as if something awful might happen: 0 = Not at all Total AMEYA-7 score (0-4 normal; 5-9 mild; 10-14 moderate; 15-21 severe): 1 Source: Developed by Drs. Austyn Abebe, Kelsey Landon, Gavin Sanabria and colleagues, with an educational contreras from [employer]. Physical exam (Primary Care) Vital Signs: Last Vital Signs Temp 97.1 F 06/17/25 11:52 Pulse 80 06/17/25 11:52 BP 122/80 06/17/25 11:52 Pulse Ox 96 06/17/25 11:52 Oxygen Delivery Method Room Air 06/17/25 11:52 BMI result Body Mass Index 25.1 Tobacco/Smoking Status: Tobacco use Status Tobacco use date assessed 06/17/25 06/17/25 11:53 Patient Tobacco Use Status Current everyday Tobacco 06/17/25 11:53 Tobacco use type Cigarette 06/17/25 11:53 e-Cigarette/Vaping Use Currently Using 06/17/25 11:53 PHQ-9: PHQ-9 Score PHQ-9: Total score 5 06/17/25 16:33 Thrive Assessment: Date of Thrive Assessment Date Thrive assessed 06/17/25 06/17/25 11:53 Coding Level of Care Code New Pt Level 4 (03222) Complex EM visit Add On G2211 Diagnoses Essential hypertension I10 Atherosclerotic cardiovascular disease I25.10 Nicotine dependence, cigarettes, uncomplicated F17.210 Varus deformity of right tibia M92.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 Continue current therapies (2) Atherosclerotic cardiovascular disease: Code(s): I25.10 - Atherosclerotic heart disease of [place] coronary artery without angina pectoris Category: Medical Plan: Stable. Continue following annually with Cardiology. 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 Check vitamin-D level. Weight-bearing exercise and smoking cessation Plan Follow-up in the office in 4 months. Labs to be completed today. Referred to physical therapy for pelvic floor therapy due to incontinence. 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, right leg, R26.9 - Unspecified abnormalities of gait and mobility, Z85.850 - Personal history of malignant neoplasm of thyroid Basic Metabolic Panel Today I10 - Essential (primary) hypertension, M81.0 - Age-related osteoporosis without current pathological fracture, Z85.850 - Personal history of malignant neoplasm of thyroid Lipid Panel Today I10 - Essential (primary) hypertension, M81.0 - Age-related osteoporosis without current pathological fracture, Z85.850 - Personal history of malignant neoplasm of thyroid Liver Panel Today I10 - Essential (primary) hypertension, M81.0 - Age-related osteoporosis without current pathological fracture, Z85.850 - Personal history of malignant neoplasm of thyroid Vitamin D 25-OH Total Today I10 - Essential (primary) hypertension, M81.0 - Age-related osteoporosis without current pathological fracture, Z85.850 - Personal history of malignant neoplasm of thyroid PT Evaluation and Treatment Today N39.41 - Urge incontinence, R15.9 - Full incontinence of feces Referrals Neurology Referral G25.2 - Other specified forms of tremor, I10 - Essential (primary) hypertension, M81.0 - Age-related osteoporosis without current pathological fracture, R26.0 - Ataxic gait, R49.8 - Other voice and resonance disorders, Z85.850 - Personal history of malignant neoplasm of thyroid
--- OUTSIDE RECORDS SUMMARY | 2025-06-17 15:21 | XMS_ITS | Clinical Summary ---
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 Name Role Phone Unavailable Primary Care Provider [...] Immunization (1 - 1-dose 75+ series) 2022 Influenza vaccine 04/22/2025 Covid-19 vaccine series ( season) 2025 Breast cancer screening Discontinued Cervical cancer screening Discontinued Colon cancer screening, Colonoscopy Discontinued Meningococcal B Vaccine Aged Out No l onger eligible based on patient's age to complete this topic Meningococcal Vaccine Aged Out No hanh kathleen [...] EST) Glucose 93 65 - 110 mg/dL [facility] Comment: (NOTE) Non-fastin-110 mg/dL Fasting (minimum 6 hrs): 65-99 mg/dL Time of Last Meal UNKNOWN [facility] BUN 15 7 - 18 mg/dL [facility] Creatinine 0.68 0.55 - 1.02 mg/dL [facility] eGFR >60 >60 mL/min [facility] Comment: (NOTE) This is an estimated value resulting from utilization of a calculation incorporating the best data available for input, but all assumptions may not be correct in every case. In addition, there are several situations (elderly over 70 years, , serious co morbidities, extremes of body size or nutritional status) which could contribute to a misleading result. Therefore, clinical correlation is advised to prevent arriving at an erroneous conclusion based solely on the calculation utilized. Sodium 147(H) 136 - 145 mmol/L [facility] Potassium 3.7 3.5 - 5.1 mmol/L [facility] Chloride 111(H) 98 - 107 mmol/L [facility] CO2 27 21 - 32 mmol/L [facility] Anion Gap 9 5 - 15 mmol/L [facility] Calcium 7.9(L) 8.5 - 10.1 mg/dL [facility] 07/28/2016 5:37 AM EST 07/28/2016 5:38 AM EST Narrative [facility] - 07/28/2016 6:22 AM EST [facility], [address] [facility] [address] - Lab number [id number] us Provider Not In System LAB BLOOD ORDERABLES Katlin l Result [facility] [address] [place] [address] * (ABNORMAL) Lipid panel (07/27/2016 7:07 AM EDT) Cholesterol 224(H) <200 mg/dL [facility] Comment: (NOTE) Cholesterol Reference Range: Desirable: <200 mg/dL Borderline: 200-240 mg/dL High Risk: >240 mg/dL Triglycerides 185(H) <150 mg/dL [facility] Comment: (NOTE) Triglyceride Reference Range: Normal: <150 mg/dL Borderline High: 150-199 mg/dL High: 200-499 mg/dL Very High: >or= 500 mg/dL HDL 37 mg/dL [facility] Comment: (NOTE) HDL Reference Range: Low: <40 High: >or= 60 LDL Calculated 150(H) <100 mg/dL [facility] Comment: (NOTE) LDL Reference Range: Optimal: <100 mg/dL Near/Above Optimal: 100-129 mg/dL Borderline High: 130-159 mg/dL High: 160-189 mg/dL Very High: >or= 190 mg/dL This calculation may not accurately calculate the LDL in alcoholic patients. These patients may require a direct measurement of serum LDL. 07/27/2016 7:07 AM EDT 07/27/2016 7:09 AM EDT Narrative [facility] - 07/27/2016 8:31 AM EDT [facility], [address] [id number] - Lab number [id number] us Provider Not In System LAB BLOOD ORDERABLES Katlin l Result [facility] [address] [place] [address] from Last 3 Months or Most Recently Relevant to Health Maintenance Insurance MEDICARE THAD
--- OUTSIDE RECORDS SUMMARY | 2025-06-17 15:21 | XMS_ITS ---
Author Name [facility] Organization Unknown History of Medication Use Medication Directions Dispensed Refills Start Date End Date Stat albuterol (PROVENTIL HFA) 90 mcg/actuation inhaler Inhale 2 puffs every 6 (six) hours as needed for wheezing for up to 5 days 03/29/2025 active amoxicillin-clavulanate (AUGMENTIN) 875-125 mg tablet Take 1 tablet by mouth 2 (two) times a day for 7 days 03/29/2025 active guaiFENesin (MUCINEX) 600 mg Ta12 Take 600-1,200 mg by mouth 2 (two) times a day as needed (Cough) for up to 7 days Max dose 2,400mg per day. 03/29/2025 active oxybutynin (DITROPAN-XL) 10 MG 24 hr tablet TAKE ONE TABLET BY MOUTH EVERY DAY 03/24/2023 5 aborted citalopram (CeleXA) 20 MG tablet TAKE ONE TABLET BY MOUTH EVERY DAY 03/08/2023 active capsaicin-menthol 0.025-10 % gel Indications: pain associated with arthritis. Use topically as directed for pain for 3 to 7 days as needed. Do not apply to open wounds, infections or exfoliative dermatitis. 01/15/2021 5 aborted methylPREDNISolone (MEDROL DOSEPACK) 4 mg tablet 24mg by mouth on day 1, then decrease by 4mg/day x5 days 01/15/2021 5 aborted cyclobenzaprine (FLEXERIL) 5 MG tablet TAKE ONE TABLET BY MOUTH AT BEDTIME 01/11/2021 5 aborted lisinopriL (ZESTRIL) 40 MG tablet TAKE ONE TABLET BY MOUTH AT BEDTIME 12/31/2020 active amLODIPine (NORVASC) 5 MG tablet TAKE ONE TABLET BY MOUTH EVERY DAY AT BEDTIME 11/29/2020 active latanoprost (XALATAN) 0.005 % ophthalmic solution INSTILL ONE DROP IN EACH EYE DAILY AT BEDTIME 11/13/2020 active Synthroid 100 mcg tablet TAKE ONE TABLET BY MOUTH ONCE DAILY 06/13/2020 5 aborted citalopram (CeleXA) 10 MG tablet Take 10 mg by mouth daily. 5 aborted rosuvastatin (Crestor) 10 MG tablet 5 aborted aspirin 81 MG tablet Take 81 mg by mouth daily. active levothyroxine (Synthroid) 100 MCG tablet active metoprolol (LOPRESSOR) 25 MG tablet Take 25 mg by mouth 2 (two) times a day. active omeprazole (PriLOSEC) 20 MG capsule Take 20 mg by mouth daily. active rosuvastatin (CRESTOR) 40 MG tablet Take 40 mg by mouth daily. active Problems Problem Status Onset Date Problem Type Date of Resoluti on Source Acute cough active EncounterDiagnosisAct CT_[facility] Encounters Encounter Type Encounter Reason Primary Diagnosis Location Date Ambulatory Respiratory Acute cough [facility] 0 03/29/2025 Care Team Organization Name Specialty Phone Email Start Date End Da te [facility] Maylin Hernandez Primary Care 03/29/2025
--- OUTSIDE RECORDS SUMMARY | 2025-06-17 15:22 | XMS_ITS | Patient Health Record ---
Author Organization [facility] Address [address] [place] [address] Care Team Providers Care Apprentice Instrument Technician Name Role Phone Jef (RETIRED) Pedro HOOD Primary Care Provider Unavailable Rafael Prieto Jr Unavailable Reason For Referral No Information [...] the procedure for 1 day 07/19/2020 Active [place] 3 Active GaviLyte-G 236 GM as directed [...] W/U Status Risk Notes Problem Esophageal reflux (300548625) Esophageal reflux (K21.9) Active confirmed Problem 695986397 Screening for colon cancer (Z12.11) Active confirmed Problem Gastric polyp (85743111) Gastric polyp (K31.7) Active confirmed Problem [id number] GERD without esophagitis (K21.9) Active confirmed Plan Of Treatment Future Test Test Name Order Date UPPER GI ENDOSCOPY 07/19/2020 COLONOSCOPY 07/19/2020 Insurance Providers Payer Name Payer Address Payer Phone Subscriber Number Group Number Insured Name Patient Relationship to Insured Coverage Start Date Coverage End Date MEDICARE [place] [address] [place] [address] [phone] [id number] MARINEDEVYN EDDIE Self - patient is the insured [facility] [employer] PLAN [address] [place] [address] [phone] [id number] MARINEDEVYNANA PAULAEDDIE Self - patient is the insured Medical (General) History Medical History History ICD Code hypertension anxiety depression hyperlipidemia acid reflux, EGD 10/01, no Soriano's esop hagus or H. pylori. colonoscopy 01/2008. No polyps, ten-year followup was due 2018 coronary artery disease with [place] and hist ory of stent placement Surgical History Surgery Date(Month/Year) thyroidectomy, complete stent placement
== END 2025-06-17 15:16 | disposition home or self-care (01) ==
LOC: HO.HMCHD 14:22
PROVIDERS: PCP Family Medicine; Visit Provider Physician Assistant
DX: I10 Essential (primary) hypertension (principal); I25.10 Atherosclerotic heart disease of native coronary artery without angina pectoris; F17.210 Nicotine dependence, cigarettes, uncomplicated; M92.501 Unspecified juvenile osteochondrosis, right leg; M81.0 Age-related osteoporosis without current pathological fracture

== ENCOUNTER → 2025-06-17 14:21 | Outpatient (BNVA) | payer MEDICARE, SELFPAY | PROVIDERS: PCP Family Medicine; Visit Provider Physician Assistant | DX: I10 Essential (primary) hypertension (principal); I25.10 Atherosclerotic heart disease of native coronary artery without angina pectoris; M92.501 Unspecified juvenile osteochondrosis, right leg; M81.0 Age-related osteoporosis without current pathological fracture; G25.2 Other specified forms of tremor; R26.0 Ataxic gait; R49.8 Other voice and resonance disorders; F17.210 Nicotine dependence, cigarettes, uncomplicated; Z85.850 Personal history of malignant neoplasm of thyroid; Z79.82 Long term (current) use of aspirin; Z79.899 Other long term (current) drug therapy; Z13.30 Encounter for screening examination for mental health and behavioral disorders, unspecified; Z13.39 Encounter for screening examination for other mental health and behavioral disorders | CPT/HCPCS: 96127; 99202 ==